=== PATIENT | female | born 1950 | race Hispanic/Latino ===

== ENCOUNTER → 2018-08-08 | Outpatient (CLI) | payer BC, MEDICARE | END | disposition home or self-care (01) | LOC: RAH 08:32 | PROVIDERS: ATTEND Family Medicine | DX: Z12.31 Encounter for screening mammogram for malignant neoplasm of breast (principal) | CPT/HCPCS: 77067 ==

== ENCOUNTER → 2021-06-30 | Outpatient (CLI) | payer OTHER | END | disposition home or self-care (01) | LOC: RAH 08:28 | PROVIDERS: ATTEND Family Medicine | DX: Z12.31 Encounter for screening mammogram for malignant neoplasm of breast (principal) | CPT/HCPCS: 77067 ==

== ENCOUNTER → 2022-07-04 | Outpatient (CLI) | payer OTHER | END | disposition home or self-care (01) | LOC: RAH 08:29 | PROVIDERS: ATTEND Family Medicine | DX: Z12.31 Encounter for screening mammogram for malignant neoplasm of breast (principal) | CPT/HCPCS: 77067 ==

== ENCOUNTER → 2023-07-05 | Outpatient (CLI) | payer OTHER | END | disposition home or self-care (01) | LOC: RAH 09:21 | PROVIDERS: ATTEND Family Medicine | DX: Z12.31 Encounter for screening mammogram for malignant neoplasm of breast (principal) | CPT/HCPCS: 77067 ==

== ENCOUNTER → 2024-07-09 | Outpatient (CLI) | payer OTHER ==
--- NOTE | 2024-07-11 12:16 | HMCIMG ---
MAMMO SCREENING BILATERAL HISTORY: Screening mammogram. COMPARISON: 07/05/2023 TECHNIQUE: Bilateral screening mammogram with CAD was performed with craniocaudal and mediolateral oblique projections. FINDINGS: The breasts are heterogeneous dense, which may obscure small masses. Vascular calcifications are seen. There is no evidence of a dominant mass, or suspicious microcalcification. There is no evidence of nipple retraction or skin thickening. IMPRESSION: 1. Stable mammogram. Patient was entered into a reminder system with a target due date for their next mammogram. BI-RADS: CATEGORY 2: BENIGN FINDINGS Recommend monthly self breast exam as well as annual clinical examination. A negative x-ray should not delay biopsy if a dominant or clinically suspicious mass is present, since 8-10% of cancers are not identified by mammography. Dense breasts particularly, may obscure an underlying neoplasm. Some of these may be detected clinically and therefore, clinical examination is an essential part of breast evaluation.
== END | disposition home or self-care (01) ==
LOC: RAH 08:16
PROVIDERS: ATTEND Family Medicine
DX: Z12.31 Encounter for screening mammogram for malignant neoplasm of breast (principal)
CPT/HCPCS: 77067

== ENCOUNTER → 2024-11-20 | Outpatient (CLI) | payer OTHER ==
[~2024-11-20] MED LIST: DIATR MEGLU/DIATRIZOATE SODIUM 30 ML BOTTLE ONE
--- NOTE | 2024-11-20 13:16 | HMCIMG ---
DOUBLE CONTRAST UPPER GI SMALL BOWEL FOLLOW-THROUGH INDICATION: Iron deficiency anemia, unspecified. CONTRACTOR BROOMCORN THRESHING: Dr. Coleman TECHNIQUE: Double contrast. FINDINGS: * Swallowing mechanism: Appears grossly normal. * Esophagus: Normal caliber and peristalsis throughout. No mucosal abnormality present There is no hiatal hernia. * Stomach: Normal size, shape and lies in normal position. Mucosal lining is preserved * Duodenum: Barium flows freely through the pylorus and into normal-appearing duodenal bulb and sweep. There is a duodenal diverticulum seen in the third portion of the duodenum. * Small bowel: Small bowel loops show normal caliber and mucosal pattern throughout. Terminal ileum is unremarkable. No abnormal identified in the cecum. Transit time was Time hours. * Gastroesophageal reflux: It was noted reaching the mid esophagus.. * There are multiple gallstones seen in the gallbladder FLUORO: Time min. IMPRESSION: Mild esophageal reflux with no hiatal hernia. Cholelithiasis
== END | disposition home or self-care (01) ==
LOC: RAH 08:44
PROVIDERS: ATTEND Internal Medicine Gastroenterology
DX: K21.9 Gastro-esophageal reflux disease without esophagitis (principal); K80.20 Calculus of gallbladder without cholecystitis without obstruction; D50.9 Iron deficiency anemia, unspecified
CPT/HCPCS: 74240; Q9963

== ENCOUNTER 2024-12-11 14:04 | Inpatient (IN) | payer OTHER ==
[~2024-12-11] VITALS: Ht 147.3 cm; Wt 41.3 kg
--- NOTE | 2024-12-11 14:20 | EKG ---
[facility] Test Date: 2024-12-11 Test Time: 14:15:55 Pat Name: FAIZAN DALAL Department: ED Room: 416 Gender: F Cane Burner: [id number] : 1950 Requested By: ANTONY FRIAS Order Number: [id number] Reading MD: Doyle Kruger Measurements Intervals [place] Rate: 106 P: 72 ME: 153 QRS: 100 QRSD: 79 T: 47 QT: 338 QTc: 448 Interpretive Statements Sinus tachycardia Probable anteroseptal infarct, old No previous ECG available for comparison Electronically Signed On 12-14-2024 19:47:09 CDT by Doyle Kruger Please click the below link to view image of tracing.
--- NOTE | 2024-12-11 14:29 | ERN ---
General Chief Complaint: Abdominal Pain Stated Complaint: ABD PAIN Time Seen by MD: 14:06 Source: patient, family History of Present Illness Initial Comments Patient is a 74-year-old female with a history of dementia coming in for failure to thrive. Per family member patient was evaluated by PCP and sent over due to increased weight loss in his short period time as well as decreased appetite and generalized body weakness. Allergies: Coded Allergies: No Known Drug Allergies (Unverified Allergy, Unknown, 12/11/24) Past Medical History Past Medical History: Anemia, Constipation, Dementia, Diabetes-Type II, GERD Medical History Other: HEMORRHOIDS Past Surgical History: Unknown ROS Dictation CONSTITUTIONAL: No chills, no fever, weakness, no diaphoresis, malaise. HEAD/FACE: No signs of trauma. EENT: No eye pain, no blurred vision, no tearing, no double vision, no ear pain, no ear discharge, no nose pain, no nasal congestion, no throat pain, no throat swelling, no mouth pain. RESPIRATORY: No cough, no orthopnea, no SOB, no stridor, no wheezing. CARDIOVASCULAR: No chest pain, no edema, no palpitations, no syncope. GASTROINTESTINAL/ABDOMINAL: No abdominal pain, no constipation, no diarrhea, no nausea, no vomiting. GENITOURINARY: No abnormal discharge, no dysuria, no frequent urination, no hematuria. No complaints of pain in the genitals. MUSCULOSKELETAL: No back pain, no gout, no joint pain, no joint swelling, no muscle pain, no muscle stiffness, no neck pain. INTEGUMENTARY: No change in color, no change in hair/nails, no dryness, no lesion, no lumps, no rash. NEUROLOGICAL/PSYCH: No anxiety, not depressed, no emotional problem, no headache, no numbness, no pre-existing deficit, no history of seizures, no tremors, no weakness. HEMATOLOGIC/LYMPHATIC: Not anemic, no history of blood clots, no apparent bleeding, no bruising, glands not swollen. All Systems Negative, Except as Noted. Physical Exam Physical Exam Dictation VITAL SIGNS: Reviewed. GENERAL APPEARANCE: Alert, oriented x3, no acute distress, obese. HEAD AND FACE: Non-traumatic. EYES: PERRL, pink conjunctivas, eyelid no trauma, anterior chamber clear. EARS: Pinnas intact and no signs of trauma or erythema. Ear canals clear and no discharge. TMs no erythema. NOSE: No discharge, no bleeding. OROPHARYNX: Mouth normal, teeth no caries, tongue pink. Pharynx clear, no erythema. Tonsils no exudates, no abscesses noted. Mucous membrane moist. NECK: Supple, non-tender, no thyromegaly, no masses, no JVD, no bruits. BREAST: Deferred. CHEST: No tenderness, no crepitus, no paradoxical movement, no retractions. LUNGS: Clear, well-ventilated, symmetric, no rales, no wheezing, no rhonchi, no stridor, good breath sounds bilaterally. HEART: Regular rate, regular rhythm, no murmur, no gallops. VASCULAR: No peripheral edema. ABDOMEN: Soft, positive bowel sounds, nondistended, no guarding, nontender, no rebound, no masses no hepatomegaly, no splenomegaly, no Rosas's sign, no hernias. RECTAL: Deferred. GENITAL: Deferred. NEUROLOGICAL: Normal speech, gross motor function intact, gross sensory function intact. MUSCULOSKELETAL: Neck nontender, full range of motion, back nontender, full range of motion. EXTREMITIES: Nontender, full range of motion. SKIN: Color pink, dry, no turgor, no rash, no lacerations, no abrasions, no contusions. LYMPHATICS: Deferred. Results Laboratory and Microbiology Lab and Micro Result Laboratory Tests Test 12/11/24 14:36 White Blood Count 6.6 K/uL (4.8-10.8) Red Blood Count 3.81 MIL/uL (4.00-5.50) L Hemoglobin 10.7 g/dL (12.0-16.0) L Hematocrit 31.2 % (36-48) L Mean Corpuscular Volume 81.9 fL (79-99) Mean Corpuscular Hemoglobin 28.1 pg (27.0-33.0) Mean Corpuscular Hemoglobin Concent 34.3 g/dL (32.0-36.0) Red Cell Distribution Width 17.6 % (11.0-15.5) H Platelet Count 278 K/uL (130-400) Mean Platelet Volume 10.0 fL (7.5-10.5) Immature Granulocyte % (Auto) 0.8 % (0-1) Neutrophils (%) (Auto) 81.0 % (40.0-77.0) H Lymphocytes (%) (Auto) 12.6 % (21.0-51.0) L Monocytes (%) (Auto) 5.3 % (3.0-13.0) Eosinophils (%) (Auto) 0.0 % (0.0-8.0) Basophils (%) (Auto) 0.3 % (0.0-5.0) Neutrophils # (Auto) 5.3 K/uL (1.8-7.7) Lymphocytes # (Auto) 0.8 K/uL (1.0-4.8) L Monocytes # (Auto) 0.4 K/uL (0.1-1.0) Eosinophils # (Auto) 0.00 K/uL (0.00-0.70) Basophils # (Auto) 0.02 K/uL (0.00-0.20) Absolute Immature Granulocyte (auto 0.05 K/uL (0-1) Nucleated Red Blood Cells 0.0 % (0.0-0.19) Sodium Level 132 mmol/L (136-145) L Potassium Level 4.5 mmol/L (3.5-5.1) Chloride Level 96 mmol/L (101-111) L Carbon Dioxide Level 28 mmol/L (21-32) Blood Urea Nitrogen 28 mg/dL (7-18) H Creatinine 0.8 mg/dL (0.5-1.0) Glomerular Filtration Rate Calc 77 mL/min (>90) Random Glucose 155 mg/dL (70-105) H Total Calcium 10.4 mg/dL (8.5-10.1) H Total Bilirubin 1.0 mg/dL (0.2-1.0) Aspartate Amino Transf (AST/SGOT) 37 U/L (10-37) Alanine Aminotransferase (ALT/SGPT) 27 U/L (12-78) Alkaline Phosphatase 69 U/L (50-136) Total Creatine Kinase 104 U/L (21-232) Troponin I High Sensitivity 95 ng/L (4-50) *H Total Protein 7.3 g/dL (6.0-8.3) Albumin 3.9 g/dL (3.5-5.0) Lipase 89 U/L (16-77) H Labs Reviewed?: Yes EKG/XRAY/US/CT/MRI EKG Comment 12/11/2024 time 2:15 p.m. Ventricular rate [address] wave elevation or depression MDM MDM: Differential diagnosis: Failure to thrive, generalized body weakness, nausea and vomiting,acs Rationale: Tests considered and ordered secondary to shared decision making include: Previous outside records reviewed: Old ER visits. Risk of complication and/or morbidity or mortality of patient management: None Medications-Per medication reconciliation Need for hospitalization: Patient does meet criteria for hospitalization. Need for emergency major/minor surgery: No There are no social concerns with this patient. Prescription drug management Prescriptions will include symptomatic care Patient's prior external medical records from other ER visits were reviewed by me as indicated. Prior testing and results from previous visits were reviewed. Prior tests were taken into account with medical decision making and resource utilization, independent historian/historians were used to obtain complete medical history. I independently interpreted the test that were performed, results were reviewed by me and considered findings on radiology if ordered. Medical management and examination interpretation discussions were had by me with other qualified healthcare professionals as indicated for the patient's care. Patient will be admitted under the care of [facility] for ongoing ma nagement of ACS with failure to thrive. ED Course Orders Procedure Category Date Status Time Cbc With Differential LAB 12/11/24 Complete 14:12 Comprehensive LAB 12/11/24 Complete Metabolic Panel 14:12 Troponin I High LAB 12/11/24 Complete Sensitivity 14:12 Urinalysis Profile LAB 12/11/24 Logged 14:12 12 Lead Ekg Tracing- EKG 12/11/24 Complete Technical 14:12 0.9%Nacl 1000ml (Ns PHA 12/11/24 Complete 1000ml) 14:30 Creatine Kinase, Total LAB 12/11/24 Complete 14:12 Chest 1vw RAD 12/11/24 Taken 14:12 Lipase LAB 12/11/24 Complete 14:12 Ct Abdomen/Pelvis W/O CT 12/11/24 Taken Contrast 15:01 Aspirin 325mg Ec Tab PHA 12/11/24 In Process (Aspirin 325mg Ec T 16:00 Troponin I High LAB 12/11/24 Logged Sensitivity 15:53 Vital Signs(Adult CPOE 12/11/24 Verified Hospitalist) 15:59 Nurse To Enter Home CPOE 12/11/24 Verified Medication 15:59 Admit Orders ADM 12/11/24 Verified 15:59 Current Medications Medications (Trade) Dose Ordered Sig/Claudia Route PRN Reason Start Time Stop Time Status Last Admin Dose Admin Aspirin (Aspirin 325mg Ec Tab) 325 mg ONCE ONCE PO 12/11/24 16:00 12/11/24 16:01 Sodium Chloride 1,000 ml @ 0 mls/hr ONCE ONCE IV 12/11/24 14:30 12/11/24 14:31 DC 12/11/24 15:49 Vital Signs Date Time Temp Pulse Resp B/P (MAP) Pulse Ox O2 Delivery O2 Flow Rate FiO2 12/11/24 15:33 97.5 98 18 107/72 100 Room Air* 0 21 12/11/24 14:06 97.5 98 18 107/72 100 Room Air 0 DX & DISP Disposition: Inpatient Decision to Admit Time: 16:06 Departure Impression: Primary Impression: ACS (acute coronary syndrome) Additional Impression: Failure to thrive Condition: Stable Referrals: KELLY ENRIQUEZ MD (PCP) ANTONY FRIAS MD Dec 11, 2024 14:29
[2024-12-11 14:46] LABS: IMMATURE GRANULOCYTE ABSOLUTE 0.05 K/uL (0-1); NUCLEATED RED BLOOD CELLS 0.0 % (0.0-0.19); PLATELET COUNT (AUTO) 278 K/uL (130-400); RED BLOOD CELL COUNT(AUTO) 3.81 MIL/uL (4.00-5.50); RED CELL DISTRIBUTION WIDTH 17.6 % (11.0-15.5); WHITE BLOOD COUNT (AUTO) 6.6 K/uL (4.8-10.8)
[2024-12-11 14:56] LABS: CREATININE 0.8 mg/dL (0.5-1.0); GLOMERULAR FILTR. RATE CALC 77.0 mL/min (>90); GLUCOSE,RANDOM 155.0 mg/dL (70-105); SODIUM SERUM 132.0 mmol/L (136-145); UREA NITROGEN, BLOOD 28.0 mg/dL (7-18)
[2024-12-11 15:01] LABS: ASPARTATE AMINOTRANSFERASE 37.0 U/L (10-37); CREATINE KINASE, TOTAL 104.0 U/L (21-232); TOTAL PROTEIN, SERUM 7.3 g/dL (6.0-8.3)
[2024-12-11] MEDS: 0.9%NACL 1000ML 1,000 ML IV ONE (15:49)
[2024-12-11] MEDS: ASPIRIN 325MG EC TAB PO ONE (16:05)
--- NOTE | 2024-12-11 16:30 | HMCIMG ---
EXAM: CR Chest, 1 View. CLINICAL HISTORY: cp COMPARISON: None provided. FINDINGS: LUNGS: The lungs show no infiltrate or other acute finding. PLEURAL SPACES: No pleural effusion or pneumothorax. MEDIASTINUM: Cardiac size and mediastinal contours within normal limits. BONES: No aggressive appearing osseous lesion seen. IMPRESSION: No acute cardiopulmonary pathology is evident. /[place]
--- NOTE | 2024-12-11 16:43 | NUR ---
Advised ED MD on elevated troponin (95).
--- NOTE | 2024-12-11 18:00 | NUR ---
Assumed patients care. Obtained urine sample. Connected patient to cardiac monitoring. Gave patient perianal care. at bedside. Patient not able to voice needs, alert, desoriented in time, place and situation. No visible signs of pain.
[2024-12-11 18:15] LABS: APPEARANCE,URINE CLEAR (CLEAR); GLUCOSE, URINE (UA) NEGATIVE (NEGATIVE); LEUKOCYTE ESTERASE ,URINE 75 Leu/uL (NEGATIVE); NITRATE,URINE NEGATIVE (NEGATIVE); OCCULT BLOOD,URINE NEGATIVE (NEGATIVE)
[2024-12-11 18:16] LABS: ADD UA MICROSCOPIC YES
[2024-12-11 18:21] LABS: OTHER CASTS, URINE 6 /LPF (None Seen)
--- NOTE | 2024-12-11 18:23 | NUR ---
Patients at bedside; does not remember the names or dosagess of medications. Stated he will send someone to get the list.
--- NOTE | 2024-12-11 18:23 | NUR ---
Discussed with patients admitting orders, medications and plan of care.
[2024-12-11] MEDS ORDERED: HYDROcodone/APAP 5/325 1 TAB TABLET PO PRN (19:00)
[2024-12-11] MEDS ORDERED: PoTASSium chloRIDE 20MEQ ER 20 MEQ ERTAB PO PRN (19:00)
[2024-12-11] MEDS ORDERED: PoTASSium chl 10% ELIXIR 20MEQ 20 MEQ/15 ML UDCUP PO PRN (19:00)
--- NOTE | 2024-12-11 19:00 | NUR ---
PATIENT CARE ASSUMED AT THIS TIME.
--- NOTE | 2024-12-11 19:08 | HP ---
[facility] HISTORY & PHYSICAL Date Patient Seen: Dec 11, 2024 Time of Visit: 19:07 Supervising Physician: Dr Chaitanya Omalley Primary Care Physician: Dr Vanessa Outpatient Specialists: [ ] Inpatient Consults: [ ] PROBLEM LIST: Acute toxic metabolic encephalopathy, POA Acute complicated cystitis, POA Hyponatremia, POA NSTEMI, initial troponin level of 95, no complaint of chest pain, and normal sinus rhythm on the monitor, POA DM type 2, with hyperglycemia, POA Failure to thrive, POA History of dementia History of GERD PLAN: Admit to medical-surgical floor with telemetry VS per unit protocol Neuro checks per unit protocol Start patient on ceftriaxone IV for cystitis Continue IV fluids Aspiration precautions Keep head of bed above 30 Treat fever aggressively Monitor temperature curve Safety precautions CBC, CMP, magnesium level daily HPI: 74-year-old female with past medical history of dementia, GERD, DM type two who presented to ED from doctor's clinic here for evaluation of progressive weight loss and possible failure to thrive. Per report patient initially was brought in by family members to PCP clinic for evaluation. Patient was found to have significant weight loss with poor appetite. Patient was then advised to come to ED for further medical evaluation. Her initial CBC showed normal WBC however there is elevated neutrophil count, there is also anemia, likely chronic. Her CMP is significant for sodium level of 132, with normal kidney function. Her initial troponin level was 95, with unremarkable EKG. However her UA showed leuko esterase. At present patient is currently hemodynamically stable, can not provide medical history, nor able to answer questions appropriately. PAST MEDICAL HX: see above PAST SURGICAL HX: noncontributory SOCIAL HISTORY: No tobacco, ETOH, or illicit drug use Coded Allergies: No Known Drug Allergies (Unverified Allergy, Unknown, 12/11/24) REVIEW OF SYSTEMS: Limited due to alteration in mental status PHYSICAL EXAM: GENERAL: alert, weak, confused HEENT: EOMI, Sclera non icteric, moist mucosa NECK: Supple, no JVD, trachea midline LUNGS: Clear breath sounds bilaterally. No wheezes HEART: Regular rate and rhythm. Normal S1 and S2, without murmurs ABD: Abdomen soft, nontender. Bowel sounds present EXT: No clubbing cyanosis or edema NEURO: Patient is confused and unable to follow simple commands Vital Signs (last 8hr) Date Time Temp Pulse Resp B/P (MAP) Pulse Ox O2 Delivery O2 Flow Rate FiO2 12/11/24 18:00 98.1 96 11 147/70 100 Room Air* 0 21 12/11/24 15:33 97.5 98 18 107/72 100 Room Air* 0 21 12/11/24 14:06 97.5 98 18 107/72 100 Room Air 0 LABS: Hematology Labs: Test 12/11/24 14:36 Range/Units White Blood Count 6.6 4.8-10.8 K/uL Red Blood Count 3.81 L 4.00-5.50 MIL/uL Hemoglobin 10.7 L 12.0-16.0 g/dL Hematocrit 31.2 L 36-48 % Mean Corpuscular Volume 81.9 79-99 fL Mean Corpuscular Hemoglobin 28.1 27.0-33.0 pg Mean Corpuscular Hemoglobin Concent 34.3 32.0-36.0 g/dL Red Cell Distribution Width 17.6 H 11.0-15.5 % Platelet Count 278 130-400 K/uL Mean Platelet Volume 10.0 7.5-10.5 fL Immature Granulocyte % (Auto) 0.8 0-1 % Neutrophils (%) (Auto) 81.0 H 40.0-77.0 % Lymphocytes (%) (Auto) 12.6 L 21.0-51.0 % Monocytes (%) (Auto) 5.3 3.0-13.0 % Eosinophils (%) (Auto) 0.0 0.0-8.0 % Basophils (%) (Auto) 0.3 0.0-5.0 % Neutrophils # (Auto) 5.3 1.8-7.7 K/uL Lymphocytes # (Auto) 0.8 L 1.0-4.8 K/uL Monocytes # (Auto) 0.4 0.1-1.0 K/uL Eosinophils # (Auto) 0.00 0.00-0.70 K/uL Basophils # (Auto) 0.02 0.00-0.20 K/uL Absolute Immature Granulocyte (auto 0.05 0-1 K/uL Nucleated Red Blood Cells 0.0 0.0-0.19 % Chemistry Labs: Test 12/11/24 16:11 12/11/24 14:36 Range/Units Troponin I High Sensitivity 95 *H 4-50 ng/L Sodium Level 132 L 136-145 mmol/L Potassium Level 4.5 3.5-5.1 mmol/L Chloride Level 96 L 101-111 mmol/L Carbon Dioxide Level 28 21-32 mmol/L Blood Urea Nitrogen 28 H 7-18 mg/dL Creatinine 0.8 0.5-1.0 mg/dL Glomerular Filtration Rate Calc 77 >90 mL/min Random Glucose 155 H 70-105 mg/dL Total Calcium 10.4 H 8.5-10.1 mg/dL Total Bilirubin 1.0 0.2-1.0 mg/dL Aspartate Amino Transf (AST/SGOT) 37 10-37 U/L Alanine Aminotransferase (ALT/SGPT) 27 12-78 U/L Alkaline Phosphatase 69 50-136 U/L Total Creatine Kinase 104 21-232 U/L Total Protein 7.3 6.0-8.3 g/dL Albumin 3.9 3.5-5.0 g/dL Lipase 89 H 16-77 U/L DIAGNOSTICS / RADIOLOGY RESULTS: EXAM: CR Chest, 1 View. CLINICAL HISTORY: cp COMPARISON: None provided. FINDINGS: LUNGS: The lungs show no infiltrate or other acute finding. PLEURAL SPACES: No pleural effusion or pneumothorax. MEDIASTINUM: Cardiac size and mediastinal contours within normal limits. BONES: No aggressive appearing osseous lesion seen. IMPRESSION: No acute cardiopulmonary pathology is evident. /[place] PLAN NEURO: Minimize central acting medications as possible. Maintain fall precautions, adequate lighting during the day PULMONARY: Supplemental 02 as needed. Maintain aspiration precautions at all times CARDIOVASCULAR: Follow hemodynamics. Vital signs per facility protocol GI & NUTRITION: Continue with nutritional support. Continue stool softeners and laxatives as needed. KIDNEYS & ELECTROLYTES: Strict monitoring of intake, output and overall fluid balance. Avoid nephrotoxic medications to the extent possible. Medications to be dosed according to renal function. Monitor electrolytes and replace as needed ENDOCRINE: Maintain blood glucose between 100-180 at all times. Hypoglycemia protocol in place INFECTIOUS DISEASE: Trend temperature, WBC and procalcitonin level Follow cultures, deescalate antibiotics as soon as possible. Panculture if new onset fever ONCOLOGY/HEMATOLOGY/COAGULATION: Monitor for s/s of bleeding Monitor hemoglobin, coagulation studies as needed SKIN: Pressure ulcer prevention per facility protocol Specialty mattress ORTHO/REHAB: Continue PT/OT Prophylaxis: Continue GI and DVT prophylaxis Code Status: Full Resuscitation Disposition: TBD Supervising physician: KHURRAM Prajapati HARVEST MANAGER Dec 11, 2024 19:08
[2024-12-11] MEDS: 0.9%NACL 1000ML 1,000 ML IV SCH (20:38)
--- NOTE | 2024-12-11 20:59 | NUR ---
REPORT GIVEN TO IRVING OZUNA.
--- NOTE | 2024-12-11 21:00 | NUR ---
CONTACT INFO: KEN DALAL, [phone]
--- NOTE | 2024-12-11 21:03 | NUR ---
PATIENT TRANSPORTED TO [facility]
[2024-12-11 21:10] VITALS: BP 139/81; PULSE 96; RESP 16; TEMP 98.1
[2024-12-11 23:20] VITALS: BP 144/86; PULSE 102; RESP 17
[2024-12-12] VITALS (7 sets, daily range): BP systolic 124–158; BP diastolic 73–88; PULSE 92–98; RESP 16–18; TEMP 98–98.3; O2SAT 100
[2024-12-12 05:18] LABS: IMMATURE GRANULOCYTE ABSOLUTE 0.02 K/uL (0-1); NUCLEATED RED BLOOD CELLS 0.0 % (0.0-0.19); PLATELET COUNT (AUTO) 264 K/uL (130-400); RED BLOOD CELL COUNT(AUTO) 3.40 MIL/uL (4.00-5.50); RED CELL DISTRIBUTION WIDTH 16.8 % (11.0-15.5); WHITE BLOOD COUNT (AUTO) 6.4 K/uL (4.8-10.8)
[2024-12-12 05:33] LABS: CREATININE 0.5 mg/dL (0.5-1.0); GLOMERULAR FILTR. RATE CALC 98 mL/min (>90); GLUCOSE,RANDOM 112 mg/dL (70-105); SODIUM SERUM 135 mmol/L (136-145); UREA NITROGEN, BLOOD 19 mg/dL (7-18)
[2024-12-12 05:48] LABS: PHOSPHORUS < 0.5 mg/dL (2.5-4.9)
[2024-12-12] MEDS: MAGNESIUM 2GM PREMIX 50ML 50 ML IV PRN (05:54)
--- NOTE | 2024-12-12 10:09 | HMCIMG ---
EXAM: CT Abdomen and Pelvis without IV contrast CLINICAL HISTORY: abd pain TECHNIQUE: Axial computed tomography images of the abdomen and pelvis without intravenous contrast. CT scan performed according to ALARA. Automated exposure control used during exam. CONTRAST: without intravenous contrast. COMPARISON: None provided. FINDINGS: Mild linear atelectasis and/or parenchymal scarring at the lung bases. Limited evaluation of the abdominal organs without intravenous contrast. There is no focal abnormality appreciated within the liver, either adrenal gland, either kidney, spleen, or pancreas. Cholelithiasis without CT evidence for cholecystitis. There is abundant colonic fecal matter that may reflect constipation. Bowel loops are normal in caliber without evidence of obstruction or ileus. The appendix was not adequately visualized for characterization. No CT evidence for acute appendicitis. The bladder is underdistended, limiting evaluation. No gross pelvic abnormalities appreciated. Calcified uterine vessels. There is no ascites or lymphadenopathy. Abdominal aorta and branch vessels demonstrate atherosclerotic vascular calcifications. There is no acute or suspicious osseous abnormality. Old T12 fracture deformity. IMPRESSION: No acute intra-abdominal or pelvic abnormality. Abundant colonic fecal matter may reflect constipation. Bowel loops remain normal in caliber. Cholelithiasis without CT evidence for cholecystitis. /[place]
--- NOTE | 2024-12-12 13:24 | NUR ---
TOBI spoke with son Turin Kaz [phone] in reference to potential provider services. TOBI educated family that services are usually covered through medicaid and asked if they had previously applied for assistance. Son states that he is unaware if they have. Informed them that there cat also private pay rates and services. Encouraged them to contact the area [place] to see if they can get services there. Another family member in room stated that perhaps they can take turns helping care for pt while they find some type of assistance. No other concerns at this time.
--- NOTE | 2024-12-12 13:59 | PN ---
[facility] PROGRESS NOTE Date Patient Seen: Dec 12, 2024 Time of Visit: 13:59 Supervising Physician: Dr Chaitanya Omalley Primary Care Physician: Dr Vanessa Outpatient Specialists: [ ] Inpatient Consults: [ ] PROBLEM LIST: Acute toxic metabolic encephalopathy, POA Acute complicated cystitis, POA Hyponatremia, POA Electrolyte derangements syndrome: Severe Hypophosphatemia, severe Hypomagnesemia & hypocalcemia NSTEMI, initial troponin level of 95, no complaint of chest pain, and normal sinus rhythm on the monitor, POA DM type 2, with hyperglycemia, POA Failure to thrive, POA Advanced dementia Aphasic Oropharyngeal dysphagia CHRONIC PROBLEM LIST: Diabetes mellitus type 2 Debility Adult failure to thrive PLAN: Admit to medical-surgical floor with telemetry VS per unit protocol Neuro checks per unit protocol Start patient on ceftriaxone IV for cystitis Continue IV fluids Aspiration precautions PPN MBSS ordered to confirm patient's condition Phosphorus, calcium, and magnesium replacement protocol Reviewing diagnostic results with family at bedside, when available Palliative care consult GI we will be consulted after above consult A.m. labs Keep head of bed above 30 Treat fever aggressively Monitor temperature curve Safety precautions CBC, CMP, magnesium level daily INTERVAL HISTORY: 74-year-old female with past medical history of dementia, GERD, DM type two who presented to ED from [facility] here for evaluation of progressive weight loss and possible failure to thrive. Per report patient initially was brought in by family members to PCP clinic for evaluation. Patient was found to have significant weight loss with poor appetite. Patient was then advised to come to ED for further medical evaluation. Her initial CBC showed normal WBC however there is elevated neutrophil count, there is also anemia, likely chronic. Her CMP is significant for sodium level of 132, with normal kidney function. Her initial troponin level was 95, with unremarkable EKG. However her UA showed leuko esterase. At present patient is currently hemodynamically stable, can not provide medical history, nor able to answer questions appropriately. 12/12-patient is was assessed and seen while resting in bed in a high Rodrigues's position with family members present. Patient's condition is guarded long-term prognosis is poor. Patient is aphasic, with some form of dysphagia, at [facility] facility prior to transfer for [facility] patient was receiving PPN. Patient is transferred via EMS to the hospital for altered mental status, acute metabolic encephalopathy. Upon assessment patient has severe hypophosphatemia and hypomagnesemia with hypocalcemia. Addressed through electrolyte protocol. We will review when rounding early tomorrow morning diagnostic tests results with family. Patient will have MBS assess to confirm patient's condition. We will discuss open nicely with family members especially daughter or son who has medical power of theatre instructor what the family's choices. After that depending on a conversation palliative care then to speak with family about patient's diagnosis prognosis enough. Family then would like to consult GI for possible G-tube placement because the patient has some form of oropharyngeal dysphagia secondary advancing dementia. REVIEW OF SYSTEMS: Limited due to alteration in mental status PHYSICAL EXAM: GENERAL: alert, weak, confused HEENT: EOMI, Sclera non icteric, moist mucosa NECK: Supple, no JVD, trachea midline LUNGS: Clear breath sounds bilaterally. No wheezes HEART: Regular rate and rhythm. Normal S1 and S2, without murmurs ABD: Abdomen soft, nontender. Bowel sounds present EXT: No clubbing cyanosis or edema NEURO: Patient is confused and unable to follow simple commands Vital Signs (last 8hr) Date Time Temp Pulse Resp B/P (MAP) Pulse Ox O2 Delivery O2 Flow Rate FiO2 12/12/24 12:00 98.2 94 18 140/88 98 Room Air 12/12/24 08:00 98.1 94 18 124/73 100 Room Air LABS: Hematology Labs: Test 12/12/24 04:46 Range/Units White Blood Count 6.4 4.8-10.8 K/uL Red Blood Count 3.40 L 4.00-5.50 MIL/uL Hemoglobin 9.4 L 12.0-16.0 g/dL Hematocrit 27.2 L 36-48 % Mean Corpuscular Volume 80.0 79-99 fL Mean Corpuscular Hemoglobin 27.6 27.0-33.0 pg Mean Corpuscular Hemoglobin Concent 34.6 32.0-36.0 g/dL Red Cell Distribution Width 16.8 H 11.0-15.5 % Platelet Count 264 130-400 K/uL Mean Platelet Volume 10.6 H 7.5-10.5 fL Immature Granulocyte % (Auto) 0.3 0-1 % Neutrophils (%) (Auto) 67.2 40.0-77.0 % Lymphocytes (%) (Auto) 24.6 21.0-51.0 % Monocytes (%) (Auto) 7.4 3.0-13.0 % Eosinophils (%) (Auto) 0.2 0.0-8.0 % Basophils (%) (Auto) 0.3 0.0-5.0 % Neutrophils # (Auto) 4.3 1.8-7.7 K/uL Lymphocytes # (Auto) 1.6 1.0-4.8 K/uL Monocytes # (Auto) 0.5 0.1-1.0 K/uL Eosinophils # (Auto) 0.01 0.00-0.70 K/uL Basophils # (Auto) 0.02 0.00-0.20 K/uL Absolute Immature Granulocyte (auto 0.02 0-1 K/uL Nucleated Red Blood Cells 0.0 0.0-0.19 % Chemistry Labs: Test 12/12/24 11:57 12/12/24 04:46 12/11/24 16:11 12/11/24 14:36 Range/Units Whole Blood Glucose 126 H 70-110 MG/DL Sodium Level 135 L 136-145 mmol/L Potassium Level 3.7 3.5-5.1 mmol/L Chloride Level 100 L 101-111 mmol/L Carbon Dioxide Level 27 21-32 mmol/L Blood Urea Nitrogen 19 H 7-18 mg/dL Creatinine 0.5 0.5-1.0 mg/dL Glomerular Filtration Rate Calc 98 >90 mL/min Random Glucose 112 H 70-105 mg/dL Total Calcium 8.7 8.5-10.1 mg/dL Phosphorus Level < 0.5 *L 2.5-4.9 mg/dL Magnesium Level 0.70 *L 1.80-2.40 mg/dL Procalcitonin < 0.05 L 0.05-0.5 ng/mL Troponin I High Sensitivity 95 *H 4-50 ng/L Total Bilirubin 1.0 0.2-1.0 mg/dL Aspartate Amino Transf (AST/SGOT) 37 10-37 U/L Alanine Aminotransferase (ALT/SGPT) 27 12-78 U/L Alkaline Phosphatase 69 50-136 U/L Total Creatine Kinase 104 21-232 U/L Total Protein 7.3 6.0-8.3 g/dL Albumin 3.9 3.5-5.0 g/dL Lipase 89 H 16-77 U/L DIAGNOSTICS / RADIOLOGY RESULTS: [ ] PLAN NEURO: Minimize central acting medications as possible. Maintain fall precautions, adequate lighting during the day PULMONARY: Supplemental 02 as needed. Maintain aspiration precautions at all times CARDIOVASCULAR: Follow hemodynamics. Vital signs per facility protocol GI & NUTRITION: Continue with nutritional support. Continue stool softeners and laxatives as needed. KIDNEYS & ELECTROLYTES: Strict monitoring of intake, output and overall fluid balance. Avoid nephrotoxic medications to the extent possible. Medications to be dosed according to renal function. Monitor electrolytes and replace as needed ENDOCRINE: Maintain blood glucose between 100-180 at all times. Hypoglycemia protocol in place INFECTIOUS DISEASE: Trend temperature, WBC and procalcitonin level Follow cultures, deescalate antibiotics as soon as possible. Panculture if new onset fever ONCOLOGY/HEMATOLOGY/COAGULATION: Monitor for s/s of bleeding Monitor hemoglobin, coagulation studies as needed SKIN: Pressure ulcer prevention per facility protocol Specialty mattress ORTHO/REHAB: Continue PT/OT Prophylaxis: Continue GI and DVT prophylaxis Code Status: Full Resuscitation Disposition: TBD Patient was seen assessed in the case was discussed with my supervising physicia n. 45 minutes critical care time spent excluding any procedures performed, based upon patient's criteria upon presentation involving bodily systems: Patient had severe electrolyte imbalances with magnesium and phosphorus, these have a direct influenza upon the cardiovascular system. Case was discussed reviewed plan was formulated with input from supervising physician, SUNI Delgado NP Dec 12, 2024 13:59
--- NOTE | 2024-12-12 14:45 | NUR ---
BEDSIDE SWALLOW EVAL COMPLETED. +s/s of aspiration. Recommend NPO, until MBSS. INSTRUCTIONAL SUPPORT SPECIALIST reviewed results and recommendations with patient, family and nurse Rosibel. INSTRUCTIONAL SUPPORT SPECIALIST educated patient on risks and consequences of aspiration. Speech therapy will follow up with MBSS. All questions answered. Addendum: 12/12/[address]ONARDA BEDOYA Amended: Links added.
--- NOTE | 2024-12-12 15:19 | NUR ---
Nutritional Note: Chart, meds, and labs Reviewed. Pt family in room states that pt has lost a lot of weight in last month amount unknown, Pt not in room. Pt was un able to answer questions and was not sure. Pt family stated pt ate around a spoonful of food today but was currently NPO. Recommend -f/u with FIRE CREW SPECIALIST recommendations. -Consider alternate nutrition support if oral intake inadequate and prolonged. - Electrolyte replacements per protocol -If PO add nutritional supplement Glucerna w/ trays. -Monitor feeding tolerance, %, wt, and labs -Document PO intake and wt daily. -If No BM >3days consider bowel stimulant. -Consider appetite stimulant if intake remains <75%for 3 days. - Notify RD if additional nutrition concerns arise. SEE RD Nutritional Assessment for additional assessment information. Addendum: 12/12/24 at [address] Amended: Links added.
--- NOTE | 2024-12-12 16:20 | NUR ---
MBSS COMPLETED. Deep non-transient penetration during the swallow with pudding textures, mildly thick liquids via tsp, and thin liquids via tsp (3cc) with inconsistent throat clearings. RECOMMEND: pureed solids, moderately thick liquids (VIA TSP), and pills crushed with applesauce (NO PUDDING). DIAGNOSTIC FINDINGS: Pt presented with moderate oral and moderate to severe pharyngeal dysphagia characterized by decreased oral motor strength, ROM, and coordination; delayed pharyngeal response trigger and decreased hyo-laryngeal elevation/excursion; evidenced by decreased labial closure with anterior spillage; tongue thrust; decreased bolus formation and manipulation; tongue pumping; premature spillage to valleculae with spillover to pyriform sinuses; residue on body and base of tongue, valleculae, pyriform sinuses and posterior pharyngeal wall partially cleared with extra dry swallows; deep non-transient penetrations during the swallow with pudding thick textures (things that melt); mildly thick liquids and thin liquids via tsp (3cc) with inconsistent throat clears. Mastication function not addressed due to tongue thrusting, decreased bolus formation/manipulation and decreased mentation. NOTE: Patient observed with lip smacking and licking hand throughout exam. COMPENSATORY STRATEGIES: 1. sit upright during oral intake 2. small bites 3. liquids ONLY via tsp 4. NOTHING THAT MELTS: pudding, ice cream, jello, etc. APPLICATIONS ENGINEER reviewed results and recommendations with patient and nurse Rosibel. APPLICATIONS ENGINEER educated patient on risks and consequences of aspiration. Speech therapy not warranted at this time. Dysphagia likely due to dementia and best managed with modification and compensatory strategies. All questions answered. Addendum: 12/12/[address]ONARDA BEDOYA Amended: Links added.
--- NOTE | 2024-12-12 18:50 | NUR ---
SPEECH THERAPY PEOPLESOFT FUNCTIONAL ANALYST arrived to patient's room to review MBSS results with patient and family present at time of visit (). PEOPLESOFT FUNCTIONAL ANALYST posted aspiration precaution sign with diet recommendations and compensatory strategies listed. Strategies reviewed with patient/family. Speech therapy not warranted. All questions answered at this time. Addendum: 12/12/[address]ONARDA BEDOYA Amended: Links added.
[2024-12-12 18:51] LABS: PHOSPHORUS < 0.5 mg/dL (2.5-4.9)
[2024-12-13] VITALS (7 sets, daily range): BP systolic 127–158; BP diastolic 85–95; PULSE 99–112; RESP 16–20; TEMP 97.6–98.3; O2SAT 99
[2024-12-13 06:24] LABS: PHOSPHORUS < 0.5 mg/dL (2.5-4.9)
[2024-12-13] MEDS ORDERED: [UNRECOGNIZED DRUG - OTHER] IV PRN (07:00)
[2024-12-13] MEDS ORDERED: NS IV PRN (07:00)
[2024-12-13] MEDS ORDERED: COMPOUND IV MISC 1 EACH IVSOLN MISC PRN (07:30)
[2024-12-13 07:56] LABS: ASPARTATE AMINOTRANSFERASE 32.0 U/L (10-37); CREATININE 0.5 mg/dL (0.5-1.0); GLOMERULAR FILTR. RATE CALC 98.0 mL/min (>90); GLUCOSE,RANDOM 171.0 mg/dL (70-105); SODIUM SERUM 136.0 mmol/L (136-145); TOTAL PROTEIN, SERUM 6.3 g/dL (6.0-8.3); UREA NITROGEN, BLOOD 12.0 mg/dL (7-18)
--- NOTE | 2024-12-13 11:12 | HMCIMG ---
MODIFIED BARIUM SWALLOW W CINE REASON: DIFFICULTY SWALLOWING FINDINGS: Fluoroscopic assistance was provided to the speech pathologist while performing examination. For findings and dietary recommendations, refer to speech pathologist's report. FLUORO TIME: 4.6 minutes IMPRESSION: Modified barium swallow as described.
--- NOTE | 2024-12-13 14:45 | NUR ---
SW spoke with family and they were agreeable to hospice services with [facility]. Family did voice that they wanted to work on placement at a hospice home. Clinicals were faxed to [facility] at [phone]
[2024-12-13] MEDS: SCOPOLAMINE HYDROBROMIDE 1 EACH ADH..PATCH TD SCH (16:13)
[2024-12-13 18:19] LABS: CREATININE 0.4 mg/dL (0.5-1.0); GLOMERULAR FILTR. RATE CALC 104.0 mL/min (>90); GLUCOSE,RANDOM 150.0 mg/dL (70-105); PHOSPHORUS 1.2 mg/dL (2.5-4.9); SODIUM SERUM 135.0 mmol/L (136-145); UREA NITROGEN, BLOOD 8.0 mg/dL (7-18)
--- NOTE | 2024-12-13 21:16 | PN ---
[facility] PROGRESS NOTE BACK DATED ENTRY 12/13/24 13:35 Date Patient Seen: Dec 13, 2024 Time of Visit: 13:35 Supervising Physician: Dr. Chaitanya Omalley Primary Care Physician: Dr Vanessa Outpatient Specialists: [ ] Inpatient Consults: [ ] PROBLEM LIST: Acute toxic metabolic encephalopathy, POA Acute complicated cystitis, POA Hyponatremia, POA Electrolyte derangements syndrome: Severe Hypophosphatemia, severe Hypomagnesemia & hypocalcemia NSTEMI, initial troponin level of 95, no complaint of chest pain, and normal sinus rhythm on the monitor, POA DM type 2, with hyperglycemia, POA Failure to thrive, POA Advanced dementia Aphasic Oropharyngeal dysphagia CHRONIC PROBLEM LIST: Advancing form of dementia Diabetes mellitus type 2 Debility Adult failure to thrive PLAN: Patient's family has chosen hospice comfort care Comfort care measures ordered Case management arranging placement Patient's family has chosen facility hospice rather than at home Oral care and repositioning the patient q.2 hours INTERVAL HISTORY: 74-year-old female with past medical history of dementia, GERD, DM type two who presented [facility] ED from [facility] here for evaluation of progressive weight loss and possible failure to thrive. Per report patient initially was brought in by family members to PCP clinic for evaluation. Patient was found to have significant weight loss with poor appetite. Patient was then advised to come to ED for further medical evaluation. Her initial CBC showed normal WBC however there is elevated neutrophil count, there is also anemia, likely chronic. Her CMP is significant for sodium level of 132, with normal kidney function. Her initial troponin level was 95, with unremarkable EKG. However her UA showed leuko esterase. At present patient is currently hemodynamically stable, can not provide medical history, nor able to answer questions appropriately. 12/12-patient is was assessed and seen while resting in bed in a high Rodrigues's position with family members present. Patient's condition is guarded long-term prognosis is poor. Patient is aphasic, with some form of dysphagia, [facility] patient was receiving PPN. Patient is transferred via EMS to the hospital for altered mental status, acute metabolic encephalopathy. Upon assessment patient has severe hypophosphatemia and hypomagnesemia with hypocalcemia. Addressed through electrolyte protocol. We will review when rounding early tomorrow morning diagnostic tests results with family. Patient will have MBS assess to confirm patient's condition. We will discuss open nicely with family members especially daughter or son who has medical power of transactional attorney what the family's choices. After that depending on a conversation palliative care then to speak with family about patient's diagnosis prognosis enough. Family then would like to consult GI for possible G-tube placement because the patient has some form of oropharyngeal dysphagia secondary advancing dementia. 12/13-Assessed and seen the patient with family members present, patient's son and were in the room with other family members during this time. Patient is aphasic, oropharyngeal dysphagia, secondary to advancing form of dementia, patient is nonverbal time patient's prognosis is patient has has been declining gradually during this hospital admission has been more dramatic. Patient's family reports that this time was time after discussing options the family has chosen hospice with comfort care. Laboratory studies or IV antibiotics we will be treated patient will have comfort measures including scopolamine patch, scheduled for pain relief and other p.r.n. medications as needed. Hospice referral has been made, case management arranging placement. Patient's code status is changed to DNR/.DNI. REVIEW OF SYSTEMS: Limited due to alteration in mental status PHYSICAL EXAM: GENERAL: alert, weak, confused HEENT: EOMI, Sclera non icteric, moist mucosa NECK: Supple, no JVD, trachea midline LUNGS: Clear breath sounds bilaterally. No wheezes HEART: Regular rate and rhythm. Normal S1 and S2, without murmurs ABD: Abdomen soft, nontender. Bowel sounds present EXT: No clubbing cyanosis or edema NEURO: Patient is confused and unable to follow simple commands Vital Signs (last 8hr) Date Time Temp Pulse Resp B/P (MAP) Pulse Ox O2 Delivery O2 Flow Rate FiO2 12/13/24 20:00 97.5 101 20 153/95 97 Nasal Cannula 12/13/24 15:30 97.9 103 16 134/85 96 Room Air LABS: Hematology Labs: Test 12/12/24 04:46 Range/Units White Blood Count 6.4 4.8-10.8 K/uL Red Blood Count 3.40 L 4.00-5.50 MIL/uL Hemoglobin 9.4 L 12.0-16.0 g/dL Hematocrit 27.2 L 36-48 % Mean Corpuscular Volume 80.0 79-99 fL Mean Corpuscular Hemoglobin 27.6 27.0-33.0 pg Mean Corpuscular Hemoglobin Concent 34.6 32.0-36.0 g/dL Red Cell Distribution Width 16.8 H 11.0-15.5 % Platelet Count 264 130-400 K/uL Mean Platelet Volume 10.6 H 7.5-10.5 fL Immature Granulocyte % (Auto) 0.3 0-1 % Neutrophils (%) (Auto) 67.2 40.0-77.0 % Lymphocytes (%) (Auto) 24.6 21.0-51.0 % Monocytes (%) (Auto) 7.4 3.0-13.0 % Eosinophils (%) (Auto) 0.2 0.0-8.0 % Basophils (%) (Auto) 0.3 0.0-5.0 % Neutrophils # (Auto) 4.3 1.8-7.7 K/uL Lymphocytes # (Auto) 1.6 1.0-4.8 K/uL Monocytes # (Auto) 0.5 0.1-1.0 K/uL Eosinophils # (Auto) 0.01 0.00-0.70 K/uL Basophils # (Auto) 0.02 0.00-0.20 K/uL Absolute Immature Granulocyte (auto 0.02 0-1 K/uL Nucleated Red Blood Cells 0.0 0.0-0.19 % Chemistry Labs: Test 12/13/24 19:54 12/13/24 18:01 12/13/24 07:31 12/13/24 05:30 Range/Units Whole Blood Glucose 164 H 70-110 MG/DL Sodium Level 135 L 136-145 mmol/L Potassium Level 2.9 *L 3.5-5.1 mmol/L Chloride Level 100 L 101-111 mmol/L Carbon Dioxide Level 28 21-32 mmol/L Blood Urea Nitrogen 8 7-18 mg/dL Creatinine 0.4 L 0.5-1.0 mg/dL Glomerular Filtration Rate Calc 104 >90 mL/min Random Glucose 150 H 70-105 mg/dL Total Calcium 8.4 L 8.5-10.1 mg/dL Phosphorus Level 1.2 L 2.5-4.9 mg/dL Magnesium Level 1.50 L 1.80-2.40 mg/dL Total Bilirubin 0.8 0.2-1.0 mg/dL Aspartate Amino Transf (AST/SGOT) 32 10-37 U/L Alanine Aminotransferase (ALT/SGPT) 22 12-78 U/L Alkaline Phosphatase 66 50-136 U/L Ammonia 15 11-32 umol/L Total Protein 6.3 6.0-8.3 g/dL Albumin 3.4 L 3.5-5.0 g/dL B-Type Natriuretic Peptide 70 0-100 pg/mL Test 12/12/24 04:46 Range/Units Procalcitonin < 0.05 L 0.05-0.5 ng/mL DIAGNOSTICS / RADIOLOGY RESULTS: [ ] PLAN NEURO: Minimize central acting medications as possible. Maintain fall precautions, adequate lighting during the day PULMONARY: Supplemental 02 as needed. Maintain aspiration precautions at all times CARDIOVASCULAR: Follow hemodynamics. Vital signs per facility protocol GI & NUTRITION: Continue with nutritional support. Continue stool softeners and laxatives as needed. KIDNEYS & ELECTROLYTES: Strict monitoring of intake, output and overall fluid balance. Avoid nephrotoxic medications to the extent possible. Medications to be dosed according to renal function. Monitor electrolytes and replace as needed ENDOCRINE: Maintain blood glucose between 100-180 at all times. Hypoglycemia protocol in place INFECTIOUS DISEASE: Trend temperature, WBC and procalcitonin level Follow cultures, deescalate antibiotics as soon as possible. Panculture if new onset fever ONCOLOGY/HEMATOLOGY/COAGULATION: Monitor for s/s of bleeding Monitor hemoglobin, coagulation studies as needed SKIN: Pressure ulcer prevention per facility protocol Specialty mattress ORTHO/REHAB: Continue PT/OT Prophylaxis: Continue GI and DVT prophylaxis Code Status: Full Resuscitation Disposition: TBD Patient was seen assessed in the case was discussed with my supervising physician. 45 minutes critical care time spent excluding any procedures performed, based upon patient's criteria upon presentation involving bodily systems: Patient had severe electrolyte imbalances with magnesium and phosphorus, these have a direct influenza upon the cardiovascular system. Case was discussed reviewed plan was formulated with input from supervising physician, USNI Delgado NP Dec 13, 2024 21:16
[2024-12-14] VITALS: BP 166/97; PULSE 90; RESP 20; TEMP 97
[2024-12-14] MEDS ORDERED: HYDROcodone/APAP 5/325 1 TAB TABLET PO PRN (02:00)
--- NOTE | 2024-12-14 03:00 | NUR ---
LABS PER PATIENTS AND SON DONT WANT NO MORE IV STICKS OR LAB DRAWN ON PATIENT
[2024-12-14 04:00] VITALS: BP 163/102; PULSE 87; RESP 20; TEMP 97.6
[2024-12-14 08:00] VITALS: BP 179/95; PULSE 79; RESP 18; TEMP 97.4; O2SAT 98
--- NOTE | 2024-12-14 11:19 | PN ---
[facility] PROGRESS NOTE Date Patient Seen: Dec 14, 2024 Time of Visit: 11:18 Supervising Physician: Dr. Enrico Franz Primary Care Physician: Dr Vanessa Outpatient Specialists: [ ] Inpatient Consults: Hospice PROBLEM LIST: Acute toxic metabolic encephalopathy, POA Acute complicated cystitis, POA Hyponatremia, POA Electrolyte derangements syndrome: Severe Hypophosphatemia, severe Hypomagnesemia & hypocalcemia NSTEMI, initial troponin level of 95, no complaint of chest pain, and normal sinus rhythm on the monitor, POA DM type 2, with hyperglycemia, POA Failure to thrive, POA Advanced dementia Aphasic Oropharyngeal dysphagia Comatose CHRONIC PROBLEM LIST: Advancing form of dementia Diabetes mellitus type 2 Debility Adult failure to thrive PLAN: Patient's family has chosen hospice comfort care Comfort care measures ordered Case management arranging placement Patient's family has chosen facility hospice rather than at home Oral care and repositioning the patient q.2 hours Case management to facilitate transferred to another facility when bed available INTERVAL HISTORY: 74-year-old female with past medical history of dementia, GERD, DM type two who presented to ED from doctor's clinic here for evaluation of progressive weight loss and possible failure to thrive. Per report patient initially was brought in by family members to PCP clinic for evaluation. Patient was found to have significant weight loss with poor appetite. Patient was then advised to come to ED for further medical evaluation. Her initial CBC showed normal WBC however there is elevated neutrophil count, there is also anemia, likely chronic. Her CMP is significant for sodium level of 132, with normal kidney function. Her initial troponin level was 95, with unremarkable EKG. However her UA showed leuko esterase. At present patient is currently hemodynamically stable, can not provide medical history, nor able to answer questions appropriately. 12/12-patient is was assessed and seen while resting in bed in a high Rodrigues's position with family members present. Patient's condition is guarded long-term prognosis is poor. Patient is aphasic, with some form of dysphagia, [facility] patient was receiving PPN. Patient is transferred via EMS to the hospital for altered mental status, acute metabolic encephalopathy. Upon assessment patient has severe hypophosphatemia and hypomagnesemia with hypocalcemia. Addressed through electrolyte protocol. We will review when rounding early tomorrow morning diagnostic tests results with family. Patient will have MBS assess to confirm patient's condition. We will discuss open nicely with family members especially daughter or son who has medical power of attorney lawyer what the family's choices. After that depending on a conversation palliative care then to speak with family about patient's diagnosis prognosis enough. Family then would like to consult GI for possible G-tube placement because the patient has some form of oropharyngeal dysphagia secondary advancing dementia. 12/13-Assessed and seen the patient with family members present, patient's son and were in the room with other family members during this time. Patient is aphasic, oropharyngeal dysphagia, secondary to advancing form of dementia, patient is nonverbal time patient's prognosis is patient has has been declining gradually during this hospital admission has been more dramatic. Patient's family reports that this time was time after discussing options the family has chosen hospice with comfort care. Laboratory studies or IV ant ibiotics we will be treated patient will have comfort measures including scopolamine patch, scheduled for pain relief and other p.r.n. medications as needed. Hospice referral has been made, case management arranging placement. Patient's code status is changed to DNR/.DNI. 12/14-The patient assessed, seen , while resting in bed high Rodrigues's position chronically ill-appearing, cachectic, aphasic, dysphagia, and requiring assistance and care q.2 hours oral care and rotation. Patient's family has chosen hospice hospice started at the hospital case management to assist with transferring the patient to a facility when bed available. Patient is being monitored oral care, pain medicine scheduled IV Tylenol scheduled, atropine, scopolamine patch, with 4-0 care being provided scheduled and p.r.n.. Family was updated and listened. REVIEW OF SYSTEMS: Limited due to alteration in mental status PHYSICAL EXAM: GENERAL: alert, weak, confused HEENT: EOMI, Sclera non icteric, moist mucosa NECK: Supple, no JVD, trachea midline LUNGS: Clear breath sounds bilaterally. No wheezes HEART: Regular rate and rhythm. Normal S1 and S2, without murmurs ABD: Abdomen soft, nontender. Bowel sounds present EXT: No clubbing cyanosis or edema NEURO: Patient is confused and unable to follow simple commands Vital Signs (last 8hr) Date Time Temp Pulse Resp B/P (MAP) Pulse Ox O2 Delivery O2 Flow Rate FiO2 12/14/24 08:00 97.3 79 18 179/95 98 Room Air 12/14/24 04:00 97.5 87 20 163/102 95 Room Air LABS: Chemistry Labs: Test 12/14/24 05:09 12/13/24 18:01 12/13/24 07:31 12/13/24 05:30 Range/Units Whole Blood Glucose 145 H 70-110 MG/DL Sodium Level 135 L 136-145 mmol/L Potassium Level 2.9 *L 3.5-5.1 mmol/L Chloride Level 100 L 101-111 mmol/L Carbon Dioxide Level 28 21-32 mmol/L Blood Urea Nitrogen 8 7-18 mg/dL Creatinine 0.4 L 0.5-1.0 mg/dL Glomerular Filtration Rate Calc 104 >90 mL/min Random Glucose 150 H 70-105 mg/dL Total Calcium 8.4 L 8.5-10.1 mg/dL Phosphorus Level 1.2 L 2.5-4.9 mg/dL Magnesium Level 1.50 L 1.80-2.40 mg/dL Total Bilirubin 0.8 0.2-1.0 mg/dL Aspartate Amino Transf (AST/SGOT) 32 10-37 U/L Alanine Aminotransferase (ALT/SGPT) 22 12-78 U/L Alkaline Phosphatase 66 50-136 U/L Ammonia 15 11-32 umol/L Total Protein 6.3 6.0-8.3 g/dL Albumin 3.4 L 3.5-5.0 g/dL B-Type Natriuretic Peptide 70 0-100 pg/mL DIAGNOSTICS / RADIOLOGY RESULTS: [ ] PLAN: Patient's family has chosen hospice comfort care Comfort care measures ordered Case management arranging placement Patient's family has chosen facility hospice rather than at home Oral care and repositioning the patient q.2 hours Case management to facilitate transferred to another facility when bed available NEURO: Minimize central acting medications as possible. Maintain fall precautions, adequate lighting during the day PULMONARY: Supplemental 02 as needed. Maintain aspiration precautions at all times CARDIOVASCULAR: Follow hemodynamics. Vital signs per facility protocol GI & NUTRITION: Continue with nutritional support. Continue stool softeners and laxatives as needed. KIDNEYS & ELECTROLYTES: Strict monitoring of intake, output and overall fluid balance. Avoid nephrotoxic medications to the extent possible. Medications to be dosed according to renal function. Monitor electrolytes and replace as needed ENDOCRINE: Maintain blood glucose between 100-180 at all times. Hypoglycemia protocol in place INFECTIOUS DISEASE: Trend temperature, WBC and procalcitonin level Follow cultures, deescalate antibiotics as soon as possible. Panculture if new onset fever ONCOLOGY/HEMATOLOGY/COAGULATION: Monitor for s/s of bleeding Monitor hemoglobin, coagulation studies as needed SKIN: Pressure ulcer prevention per facility protocol Specialty mattress ORTHO/REHAB: Continue PT/OT Prophylaxis: Continue GI and DVT prophylaxis Code Status: Full Resuscitation Disposition: TBD Patient was seen assessed in the case was discussed with my supervising physician. 45 minutes critical care time spent excluding any procedures performed, based upon patient's criteria upon presentation involving bodily systems: Patient had severe electrolyte imbalances with magnesium and phosphorus, these have a direct influenza upon the cardiovascular system. Case was discussed reviewed plan was formulated with input from supervising physician, SUNI Delgado NP Dec 14, 2024 11:19
[2024-12-14 20:11] VITALS: BP 135/73; PULSE 99; RESP 18; TEMP 97.8
[2024-12-15] VITALS: BP 144/101; PULSE 97; RESP 18; TEMP 97.5
[2024-12-15 04:00] VITALS: BP 151/97; PULSE 95; RESP 20; TEMP 98.1
[2024-12-15 07:16] VITALS: O2SAT 97
[2024-12-15 08:00] VITALS: BP 156/97; PULSE 106; RESP 17; TEMP 97.6
--- NOTE | 2024-12-15 12:16 | PN ---
[facility] PROGRESS NOTE Date Patient Seen: Dec 15, 2024 Time of Visit: 12:16 Supervising Physician: Dr Enrico Franz Primary Care Physician: Dr Vanessa Outpatient Specialists: [ ] Inpatient Consults: Hospice PROBLEM LIST: Acute toxic metabolic encephalopathy, POA Acute complicated cystitis, POA Hyponatremia, POA Electrolyte derangements syndrome: Severe Hypophosphatemia, severe Hypomagnesemia & hypocalcemia NSTEMI, initial troponin level of 95, no complaint of chest pain, and normal sinus rhythm on the monitor, POA DM type 2, with hyperglycemia, POA Failure to thrive, POA Advanced dementia Aphasic Oropharyngeal dysphagia Comatose CHRONIC PROBLEM LIST: Advancing form of dementia Diabetes mellitus type 2 Debility Adult failure to thrive PLAN: Patient's family has chosen hospice comfort care Comfort care measures ordered Measures scheduled nonnarcotic medicine, IV Tylenol atropine, scopolamine patch q.72 hours Oral care and repositioning the patient q.2 hours Case management to facilitate transferred to another facility when bed available INTERVAL HISTORY: 74-year-old female with past medical history of dementia, GERD, DM type two who presented to ED from doctor's clinic here for evaluation of progressive weight loss and possible failure to thrive. Per report patient initially was brought in by family members to PCP clinic for evaluation. Patient was found to have significant weight loss with poor appetite. Patient was then advised to come to ED for further medical evaluation. Her initial CBC showed normal WBC however there is elevated neutrophil count, there is also anemia, likely chronic. Her CMP is significant for sodium level of 132, with normal kidney function. Her initial troponin level was 95, with unremarkable EKG. However her UA showed leuko esterase. At present patient is currently hemodynamically stable, can not provide medical history, nor able to answer questions appropriately. 12/12-patient is was assessed and seen while resting in bed in a high Rodrigues's position with family members present. Patient's condition is guarded long-term prognosis is poor. Patient is aphasic, with some form of dysphagia, at [facility] facility prior to transfer [facility] patient was receiving PPN. Patient is transferred via EMS to the hospital for altered mental status, acute metabolic encephalopathy. Upon assessment patient has severe hypophosphatemia and hypomagnesemia with hypocalcemia. Addressed through electrolyte protocol. We will review when rounding early tomorrow morning diagnostic tests results with family. Patient will have MBS assess to confirm patient's condition. We will discuss open nicely with family members especially daughter or son who has medical power of family law attorney what the family's choices. After that depending on a conversation palliative care then to speak with family about patient's diagnosis prognosis enough. Family then would like to consult GI for possible G-tube placement because the patient has some form of oropharyngeal dysphagia secondary advancing dementia. 12/13-Assessed and seen the patient with family members present, patient's son and were in the room with other family members during this time. Patient is aphasic, oropharyngeal dysphagia, secondary to advancing form of dementia, patient is nonverbal time patient's prognosis is patient has has been declining gradually during this hospital admission has been more dramatic. Patient's family reports that this time was time after discussing options the family has chosen hospice with comfort care. Laboratory studies or IV antibiotics we will be treated patient will have comfort measures including scopolamine patch, scheduled for pain relief and other p.r.n. medications as needed. Hospice referral has been made, case management arranging placement. Patient's code status is changed to DNR/.DNI. 12/14-The patient assessed, seen , while resting in bed high Rodrigues's position chronically ill-appearing, cachectic, aphasic, dysphagia, and requiring assistance and care q.2 hours oral care and rotation. Patient's family has chosen hospice hospice started at the hospital case management to assist with transferring the patient to a facility when bed available. Patient is being monitored oral care, pain medicine scheduled IV Tylenol scheduled, atropine, scopolamine patch, with 4-0 care being provided scheduled and p.r.n.. Family was updated and listened. 12/15-patient is seen assess while resting in bed high Rodrigues's position patient is total care, secondary to oropharyngeal dysphagia and family choosing hospice over G-tube interventions. This was chose this was made because the family patient has advancing process symptoms associated this advancing form dementia. Patient family spent 2-1/2 months patient enjoying time in the summer no situation would arise. Case management to assist with the hospice company that was elected for when a hospice bed is available we will be transferring the patient, the meantime patient will have hospice administered in hospital. REVIEW OF SYSTEMS: Limited due to alteration in mental status PHYSICAL EXAM: GENERAL: alert, weak, confused HEENT: EOMI, Sclera non icteric, moist mucosa NECK: Supple, no JVD, trachea midline LUNGS: Clear breath sounds bilaterally. No wheezes HEART: Regular rate and rhythm. Normal S1 and S2, without murmurs ABD: Abdomen soft, nontender. Bowel sounds present EXT: No clubbing cyanosis or edema NEURO: Patient is confused and unable to follow simple commands Vital Signs (last 8hr) Date Time Temp Pulse Resp B/P (MAP) Pulse Ox O2 Delivery O2 Flow Rate FiO2 12/15/24 08:00 97.5 106 17 156/97 97 Room Air 12/15/24 07:16 97 Room Air* 0 21 LABS: Chemistry Labs: Test 12/14/24 05:09 12/13/24 18:01 Range/Units Whole Blood Glucose 145 H 70-110 MG/DL Sodium Level 135 L 136-145 mmol/L Potassium Level 2.9 *L 3.5-5.1 mmol/L Chloride Level 100 L 101-111 mmol/L Carbon Dioxide Level 28 21-32 mmol/L Blood Urea Nitrogen 8 7-18 mg/dL Creatinine 0.4 L 0.5-1.0 mg/dL Glomerular Filtration Rate Calc 104 >90 mL/min Random Glucose 150 H 70-105 mg/dL Total Calcium 8.4 L 8.5-10.1 mg/dL Phosphorus Level 1.2 L 2.5-4.9 mg/dL Magnesium Level 1.50 L 1.80-2.40 mg/dL DIAGNOSTICS / RADIOLOGY RESULTS: [ ] PLAN: Patient's family has chosen hospice comfort care Comfort care measures ordered Case management arranging placement Patient's family has chosen facility hospice rather than at home Oral care and repositioning the patient q.2 hours Case management to facilitate transferred to another facility when bed available NEURO: Minimize central acting medications as possible. Maintain fall precautions, adequate lighting during the day PULMONARY: Supplemental 02 as needed. Maintain aspiration precautions at all times CARDIOVASCULAR: Follow hemodynamics. Vital signs per facility protocol GI & NUTRITION: Continue with nutritional support. Continue stool softeners and laxatives as needed. KIDNEYS & ELECTROLYTES: Strict monitoring of intake, output and overall fluid balance. Avoid nephrotoxic medications to the extent possible. Medications to be dosed according to renal function. Monitor electrolytes and replace as needed ENDOCRINE: Maintain blood glucose between 100-180 at all times. Hypoglycemia protocol in place INFECTIOUS DISEASE: Trend temperature, WBC and procalcitonin level Follow cultures, deescalate antibiotics as soon as possible. Panculture if new onset fever ONCOLOGY/HEMATOLOGY/COAGULATION: Monitor for s/s of bleeding Monitor hemoglobin, coagulation studies as needed SKIN: Pressure ulcer prevention per facility protocol Specialty mattress ORTHO/REHAB: Continue PT/OT Prophylaxis: Continue GI and DVT prophylaxis Code Status: Full Resuscitation Disposition: TBD Patient was seen assessed in the case was discussed with my supervising physician. 45 minutes critical care time spent excluding any procedures performed, based upon patient's criteria upon presentation involving bodily systems: Patient had severe electrolyte imbalances with magnesium and phosphorus, these have a direct influenza upon the cardiovascular system. Case was discussed reviewed plan was formulated with input from supervising physician, SUNI Delgado NP Dec 15, 2024 12:16
[2024-12-15 20:00] VITALS: BP 141/64; PULSE 62; RESP 20; TEMP 98.3; O2SAT 98
[2024-12-16] VITALS: BP 136/89; PULSE 107; RESP 20; TEMP 98.1
[2024-12-16 04:00] VITALS: BP 147/98; PULSE 112; RESP 20; TEMP 98.2
[2024-12-16 08:00] VITALS: BP 163/79; PULSE 107; RESP 20; TEMP 98
[2024-12-16 09:20] VITALS: O2SAT 91
--- NOTE | 2024-12-16 11:43 | NUR ---
SW spoke to Carlota from [facility] and pt is still waiting on a placement. Pt is currently #2 on waitlist for [facility] and they have begun the application for [facility].
--- NOTE | 2024-12-16 19:01 | PN ---
[facility] PROGRESS NOTE Date Patient Seen: Dec 16, 2024 Time of Visit: 19:01 Supervising Physician: [ ] Primary Care Physician: Dr Vanessa Outpatient Specialists: [ ] Inpatient Consults: Hospice PROBLEM LIST: Acute toxic metabolic encephalopathy, POA Acute complicated cystitis, POA Hyponatremia, POA Electrolyte derangements syndrome: Severe Hypophosphatemia, severe Hypomagnesemia & hypocalcemia NSTEMI, initial troponin level of 95, no complaint of chest pain, and normal sinus rhythm on the monitor, POA DM type 2, with hyperglycemia, POA Failure to thrive, POA Advanced dementia Aphasic Oropharyngeal dysphagia Comatose CHRONIC PROBLEM LIST: Advancing form of dementia Diabetes mellitus type 2 Debility Adult failure to thrive PLAN: Patient's family has chosen hospice comfort care Comfort care measures ordered Measures scheduled nonnarcotic medicine, IV Tylenol atropine, scopolamine patch q.72 hours Oral care and repositioning the patient q.2 hours Case management to facilitate transferred to another facility when bed available INTERVAL HISTORY: 74-year-old female with past medical history of dementia, GERD, DM type two who presented to ED from doctor's clinic here for evaluation of progressive weight loss and possible failure to thrive. Per report patient initially was brought in by family members to PCP clinic for evaluation. Patient was found to have significant weight loss with poor appetite. Patient was then advised to come to ED for further medical evaluation. Her initial CBC showed normal WBC however there is elevated neutrophil count, there is also anemia, likely chronic. Her CMP is significant for sodium level of 132, with normal kidney function. Her initial troponin level was 95, with unremarkable EKG. However her UA showed leuko esterase. At present patient is currently hemodynamically stable, can not provide medical history, nor able to answer questions appropriately. 12/12-patient is was assessed and seen while resting in bed in a high Rodrigues's position with family members present. Patient's condition is guarded long-term prognosis is poor. Patient is aphasic, with some form of dysphagia, at [facility] facility prior to [facility] patient was receiving PPN. Patient is transferred via EMS to the hospital for altered mental status, acute metabolic encephalopathy. Upon assessment patient has severe hypophosphatemia and hypomagnesemia with hypocalcemia. Addressed through electrolyte protocol. We will review when rounding early tomorrow morning diagnostic tests results with family. Patient will have MBS assess to confirm patient's condition. We will discuss open nicely with family members especially daughter or son who has medical power of transactional attorney what the family's choices. After that depending on a conversation palliative care then to speak with family about patient's diagnosis prognosis enough. Family then would like to consult GI for possible G-tube placement because the patient has some form of oropharyngeal dysphagia secondary advancing dementia. 12/13-Assessed and seen the patient with family members present, patient's son and were in the room with other family members during this time. Patient is aphasic, oropharyngeal dysphagia, secondary to advancing form of dementia, patient is nonverbal time patient's prognosis is patient has has been declining gradually during this hospital admission has been more dramatic. Patient's family reports that this time was time after discussing options the family has chosen hospice with comfort care. Laboratory studies or IV antibiotics we will be treated patient will have comfort measures including scopolamine patch, scheduled for pain relief and other p.r.n. medications as needed. Hospice referral has been made, case management arranging placement. Patient's code status is changed to DNR/.DNI. 12/14-The patient assessed, seen , while resting in bed high Rodrigues's position chronically ill-appearing, cachectic, aphasic, dysphagia, and requiring assistance and care q.2 hours oral care and rotation. Patient's family has chosen hospice hospice started at the hospital case management to assist with transferring the patient to a facility when bed available. Patient is being monitored oral care, pain medicine scheduled IV Tylenol scheduled, atropine, scopolamine patch, with 4-0 care being provided scheduled and p.r.n.. Family was updated and listened. 12/15-patient is seen assess while resting in bed high Rodrigues's position patient is total care, secondary to oropharyngeal dysphagia and family choosing hospice over G-tube interventions. This was chose this was made because the family patient has advancing process symptoms associated this advancing form dementia. Patient family spent 2-1/2 months patient enjoying time in the summer no situation would arise. Case management to assist with the hospice company that was elected for when a hospice bed is available we will be transferring the patient, the meantime patient will have hospice administered in hospital. REVIEW OF SYSTEMS: Limited due to alteration in mental status PHYSICAL EXAM: GENERAL: alert, weak, confused HEENT: EOMI, Sclera non icteric, moist mucosa NECK: Supple, no JVD, trachea midline LUNGS: Clear breath sounds bilaterally. No wheezes HEART: Regular rate and rhythm. Normal S1 and S2, without murmurs ABD: Abdomen soft, nontender. Bowel sounds present EXT: No clubbing cyanosis or edema NEURO: Patient is confused and unable to follow simple commands LABS: DIAGNOSTICS / RADIOLOGY RESULTS: [ ] PLAN: Patient's family has chosen hospice comfort care Comfort care measures ordered Case management arranging placement Patient's family has chosen facility hospice rather than at home Oral care and repositioning the patient q.2 hours Case management to facilitate transferred to another facility when bed available NEURO: Minimize central acting medications as possible. Maintain fall precautions, adequate lighting during the day PULMONARY: Supplemental 02 as needed. Maintain aspiration precautions at all times CARDIOVASCULAR: Follow hemodynamics. Vital signs per facility protocol GI & NUTRITION: Continue with nutritional support. Continue stool softeners and laxatives as needed. KIDNEYS & ELECTROLYTES: Strict monitoring of intake, output and overall fluid balance. Avoid nephrotoxic medications to the extent possible. Medications to be dosed according to renal function. Monitor electrolytes and replace as needed ENDOCRINE: Maintain blood glucose between 100-180 at all times. Hypoglycemia protocol in place INFECTIOUS DISEASE: Trend temperature, WBC and procalcitonin level Follow cultures, deescalate antibiotics as soon as possible. Panculture if new onset fever ONCOLOGY/HEMATOLOGY/COAGULATION: Monitor for s/s of bleeding Monitor hemoglobin, coagulation studies as needed SKIN: Pressure ulcer prevention per facility protocol Specialty mattress ORTHO/REHAB: Continue PT/OT Prophylaxis: Continue GI and DVT prophylaxis Code Status: Full Resuscitation Disposition: TBD Patient was seen assessed in the case was discussed with my supervising physician. 45 minutes critical care time spent excluding any procedures performed, based upon patient's criteria upon presentation involving bodily systems: Patient had severe electrolyte imbalances with magnesium and phosphorus, these have a direct influenza upon the cardiovascular system. Case was discussed reviewed plan was formulated with input from supervising physician, SUNI Delgado NP Dec 16, 2024 19:01
[2024-12-16 19:10] VITALS: O2SAT 98
--- NOTE | 2024-12-16 19:51 | PN ---
[facility] PROGRESS NOTE Date Patient Seen: Dec 16, 2024 Time of Visit: 19:49 Supervising Physician: APRIL PARRA MD Primary Care Physician: Dr Vanessa Outpatient Specialists: [ ] Inpatient Consults: Hospice PROBLEM LIST: Acute toxic metabolic encephalopathy, POA Acute complicated cystitis, POA Hyponatremia, POA Electrolyte derangements syndrome: Severe Hypophosphatemia, severe Hypomagnesemia & hypocalcemia NSTEMI, initial troponin level of 95, no complaint of chest pain, and normal sinus rhythm on the monitor, POA DM type 2, with hyperglycemia, POA Failure to thrive, POA Advanced dementia Aphasic Oropharyngeal dysphagia Comatose CHRONIC PROBLEM LIST: Advancing form of dementia Diabetes mellitus type 2 Debility Adult failure to thrive INTERVAL HISTORY: Patient's family at bedside She is on room air no acute distress unable to sleep overnight as per family, patient very anxious and confused no fevers no nausea no vomiting no seizures patient is agitated, poor appetite. REVIEW OF SYSTEMS: Limited due to alteration in mental status PHYSICAL EXAM: GENERAL: alert, weak, confused HEENT: EOMI, Sclera non icteric, moist mucosa NECK: Supple, no JVD, trachea midline LUNGS: Clear breath sounds bilaterally. No wheezes HEART: Regular rate and rhythm. Normal S1 and S2, without murmurs ABD: Abdomen soft, nontender. Bowel sounds present EXT: No clubbing cyanosis or edema NEURO: Patient is confused and unable to follow simple commands LABS: DIAGNOSTICS / RADIOLOGY RESULTS: [ ] PLAN: Continue comfort measures Patient with anti anxiety medications Keep comfortable aspiration precautions fall precautions Family updated, prognosis poor. DNR I personally scribed for APRIL SALMON MD ([email or web address]) on 12/16/24 at 19:51. Electronically submitted by Ned Drummond ([email or web address]). APRIL SALMON MD Dec 16, 2024 19:51
[2024-12-16 20:00] VITALS: BP 129/67; PULSE 122; RESP 20; TEMP 98.1
[2024-12-17 08:00] VITALS: BP 150/79; PULSE 99; RESP 18; TEMP 96.9
[2024-12-17 08:01] VITALS: O2SAT 97
--- NOTE | 2024-12-17 08:32 | NUR ---
TOBI spoke with Carlota [phone] from [facility]. As per Carlota she was pending COVID results to complete the application for [facility] for hospice placement. TOIB faxed copy of results to [phone]. As per Carlota she will be submitting application for [facility] and pt continues to be #2 on the waitlist at [facility].
--- NOTE | 2024-12-17 11:20 | NUR ---
DCP HOS[facility] AT [facility] received call from Carlota [phone] that pt has been accepted for placement by [facility]. [facility] has a cut off to accept pts at 12pm. DME will be delivered today and pt will be ready to transition to [facility] in the am of 12/18. Call report to [facility] [phone] and [phone] for hospice.
--- NOTE | 2024-12-17 14:56 | PN ---
[facility] PROGRESS NOTE Date Patient Seen: Dec 17, 2024 Time of Visit: 14:56 Supervising Physician: Dr. Ness Primary Care Physician: Dr Vanessa Outpatient Specialists: [ ] Inpatient Consults: Hospice PROBLEM LIST: Acute toxic metabolic encephalopathy, POA Acute complicated cystitis, POA Hyponatremia, POA Electrolyte derangements syndrome: Severe Hypophosphatemia, severe Hypomagnesemia & hypocalcemia NSTEMI, initial troponin level of 95, no complaint of chest pain, and normal sinus rhythm on the monitor, POA DM type 2, with hyperglycemia, POA Failure to thrive, POA Advanced dementia Aphasic Oropharyngeal dysphagia Comatose CHRONIC PROBLEM LIST: Advancing form of dementia Diabetes mellitus type 2 Debility Adult failure to thrive INTERVAL HISTORY: Patient is seen bedside with family members present. Patient appears comfortable, no complaints or overnight events reported by family. She remains on comfort measures, DNR code status. Patient has pending a visit from hospice services to evaluate for outpatient hospice. REVIEW OF SYSTEMS: Limited due to alteration in mental status PHYSICAL EXAM: GENERAL: alert, weak, confused HEENT: EOMI, Sclera non icteric, moist mucosa NECK: Supple, no JVD, trachea midline LUNGS: Clear breath sounds bilaterally. No wheezes HEART: Regular rate and rhythm. Normal S1 and S2, without murmurs ABD: Abdomen soft, nontender. Bowel sounds present EXT: No clubbing cyanosis or edema NEURO: Patient is confused and unable to follow simple commands Vital Signs (last 8hr) Date Time Temp Pulse Resp B/P (MAP) Pulse Ox O2 Delivery O2 Flow Rate FiO2 12/17/24 08:00 97.0 99 18 150/79 97 Room Air LABS: DIAGNOSTICS / RADIOLOGY RESULTS: [ ] PLAN: Continue comfort measures Patient with anti anxiety medications Keep comfortable aspiration precautions fall precautions Family updated, prognosis poor. DNR ENID MONDRAGON Dec 17, 2024 14:56
[2024-12-17 19:40] VITALS: O2SAT 96
[2024-12-17 20:00] VITALS: BP 143/87; PULSE 112; RESP 20; TEMP 97.4
[2024-12-18 08:00] VITALS: BP 131/79; PULSE 76; RESP 13; TEMP 96.6; O2SAT 99
--- NOTE | 2024-12-18 08:19 | NUR ---
RON NOBLEING TOBI received a call first thing in the morning from Anita at [facility], she informed me that family had contacted her yesterday evening saying that they were unsure about the decision to go to the [facility] and decided not to move forth. It was explained to him that if he decided to not go through with it last night he would surrender his spot and he stated he understood. Stated that he wanted to look into a private home but could not identify which one. TOBI will be also following up with family.
--- NOTE | 2024-12-18 08:50 | NUR ---
DC PLAN RECEIVED MESSAGE FROM MODELING INSTRUCTOR FARSHAD SAID THAT SON YESTERDAY AT 645PM TOLD NATALIE JEFF THAT THEY DID NOT QUITE LIKE THE PLACE AND DID NOT WANT BED. HE ALSO LOST BED AT [facility]. THEY SAID THEY THINK THEY WILL GO WITH [facility]IVATE [facility] HOME. THEY WERE NOT SURE WOULD HAVE TO LOOK AROUND. CM LET PRIMARY KNOW OF SITUATION. ASKED FOR DC ORDER FOR FINANCIAL DEPARTMENT TO VISIT SO THAT THEY COULD GET A HOSPITAL RATE FOR STAYING IN HOSPITAL. ORDER PLACED CM SENT MESSAGE TO FINANCIAL DEPARTMENT. Addendum: 12/18/24 at 0855 by LESLEY TRUJILLO RN CM Amended: Links added.
--- NOTE | 2024-12-18 08:50 | NUR ---
TOBI met with sps and son (via phone) to discuss DC plan. As per sps he was unaware that the [facility] placement was let go. Son stated that they had previously had a conversation about it and perhaps the father does not remember. TOBI asked what new plan is and educated family about the dc orders already being placed. As per son they are looking into private homes in the [facility] and will be contacting Anita today to discuss placement. TOBI contacted Carlota to give a heads up about the conversation had with family and she stated that she will contact son KWAN.
--- NOTE | 2024-12-18 09:15 | NUR ---
DC PLAN: HOSPICE AT [facility] TOBI received a call from Anita with [facility] and she stated that she contact the family and they stated that they are looking to go with the [facility]. She states that the home fee is about $1500 a month and family states that is within their budget. Anita states that they are setting up an appointment for family to tour and do consents today and they will keep me posted once everything has been finalized and DME is delivered. TOBI will follow.
--- NOTE | 2024-12-18 11:17 | NUR ---
DC: HOSPICE AT [facility] SW received update from [facility] stating that pt's family has agreed to go to [facility] ([id number] At this time they are confirming that they have DME at the facility and will confirm once they have everything there. Nurses to call report to [facility] at [phone] and [facility] at [phone]
--- NOTE | 2024-12-18 11:57 | NUR ---
EMS form has been updated and placed in chart. SW spoke with nurse to inform of plan and numbers to call report.
--- NOTE | 2024-12-18 13:20 | NUR ---
REPORT CALLED TO [facility] Report given to staff. Room is ready.
--- NOTE | 2024-12-18 14:16 | PN ---
[facility] PROGRESS NOTE Date Patient Seen: Dec 18, 2024 Time of Visit: 14:16 Supervising Physician: Dr. Salgado Primary Care Physician: Dr Vanessa Outpatient Specialists: [ ] Inpatient Consults: Hospice PROBLEM LIST: Acute toxic metabolic encephalopathy, POA Acute complicated cystitis, POA Hyponatremia, POA Electrolyte derangements syndrome: Severe Hypophosphatemia, severe Hypomagnesemia & hypocalcemia NSTEMI, initial troponin level of 95, no complaint of chest pain, and normal sinus rhythm on the monitor, POA DM type 2, with hyperglycemia, POA Failure to thrive, POA Advanced dementia Aphasic Oropharyngeal dysphagia Comatose CHRONIC PROBLEM LIST: Advancing form of dementia Diabetes mellitus type 2 Debility Adult failure to thrive INTERVAL HISTORY: Patient is seen bedside with family members present. Patient appears comfortable, no complaints or overnight events reported by family. She remains on comfort measures, DNR code status. Patient has pending a visit from hospice services to evaluate for outpatient hospice. REVIEW OF SYSTEMS: Limited due to alteration in mental status PHYSICAL EXAM: GENERAL: alert, weak, confused HEENT: EOMI, Sclera non icteric, moist mucosa NECK: Supple, no JVD, trachea midline LUNGS: Clear breath sounds bilaterally. No wheezes HEART: Regular rate and rhythm. Normal S1 and S2, without murmurs ABD: Abdomen soft, nontender. Bowel sounds present EXT: No clubbing cyanosis or edema NEURO: Patient is confused and unable to follow simple commands Vital Signs (last 8hr) Date Time Temp Pulse Resp B/P (MAP) Pulse Ox O2 Delivery O2 Flow Rate FiO2 12/18/24 08:00 96.6 76 13 131/79 94 Room Air LABS: DIAGNOSTICS / RADIOLOGY RESULTS: [ ] PLAN: Continue comfort measures Patient with anti anxiety medications Keep comfortable aspiration precautions fall precautions Family updated, prognosis poor. DNR ENID MONDRAGON Dec 18, 2024 14:16
--- NOTE | 2024-12-18 14:42 | NUR ---
REPORT TO [facility], NURSE TRIPATHI Report called. EMS to be called once keycase assembler provides non-emergent transfer form.
--- NOTE | 2024-12-18 14:50 | NUR ---
CHIQUI PLAN FAMILY DECIDED [facility] [phone] AT [facility] [phone]. LET NURSE AND KNOW. EMS SET UP. Addendum: 12/18/24 at 1452 by LESLEY TRUJILLO RN CM Amended: Links added.
--- NOTE | 2024-12-18 14:56 | DS ---
[facility] DISCHARGE SUMMARY Date Patient Seen: Dec 18, 2024 Time of Visit: 14:56 Supervising Physician: [ ] Supervising Physician: Dr. Salgado Primary Care Physician: Dr Vanessa Outpatient Specialists: [ ] Inpatient Consults: Hospice HOSPITAL COURSE: HPI (per admitting provider) 74-year-old female with past medical history of dementia, GERD, DM type two who presented to ED from doctor's clinic here for evaluation of progressive weight loss and possible failure to thrive. Per report patient initially was brought in by family members to PCP clinic for evaluation. Patient was found to have significant weight loss with poor appetite. Patient was then advised to come to ED for further medical evaluation. Her initial CBC showed normal WBC however there is elevated neutrophil count, there is also anemia, likely chronic. Her CMP is significant for sodium level of 132, with normal kidney function. Her initial troponin level was 95, with unremarkable EKG. However her UA showed leuko esterase. At present patient is currently hemodynamically stable, can not provide medical history, nor able to answer questions appropriately. The patient was treated for the following problems: Patient was originally admitted for NSTEMI and toxic encephalopathy. Patient was noted to have worsening severe dementia. On this admission patient's family opted for comfort measures and hospice, she is being discharged into hospice house with family at bedside. ACTIVE PROBLEM LIST FOR THE HOSPITALIZATION: Acute toxic metabolic encephalopathy, POA Acute complicated cystitis, POA Hyponatremia, POA Electrolyte derangements syndrome: Severe Hypophosphatemia, severe Hypomagnesemia & hypocalcemia NSTEMI, initial troponin level of 95, no complaint of chest pain, and normal sinus rhythm on the monitor, POA DM type 2, with hyperglycemia, POA Failure to thrive, POA Advanced dementia Aphasic Oropharyngeal dysphagia Comatose CHRONIC PROBLEMS: continue previous management per PCP unless otherwise indicated Advancing form of dementia Diabetes mellitus type 2 Debility Adult failure to thrive ENVIRONMENTAL SUSTAINABILITY MANAGER FINDINGS/RECOMMENDATIONS: [ ] PROCEDURES: as mentioned above DISCHARGE MEDICATIONS: Pt hemodynamically stable and afebrile at time of discharge. PCP notified of patients admission, hospital course and discharge. PHYSICAL EXAM: GENERAL: alert, weak, confused HEENT: EOMI, Sclera non icteric, moist mucosa NECK: Supple, no JVD, trachea midline LUNGS: Clear breath sounds bilaterally. No wheezes HEART: Regular rate and rhythm. Normal S1 and S2, without murmurs ABD: Abdomen soft, nontender. Bowel sounds present EXT: No clubbing cyanosis or edema NEURO: Patient is confused and unable to follow simple commands FOLLOW-UP: Follow-up with PCP in 2-3 days RECOMMENDATIONS: See Discharge Instructions This case was seen and discussed with my supervising physician. More than 30 minutes spent on discharge process, including evaluation of the patient, discussion with nursing staff, medication reconciliation and follow-up appointments ENID MONDRAGON Dec 18, 2024 14:56
--- NOTE | 2024-12-18 15:01 | NUR ---
[employer] PROVIDED EMS TRANSFER FORM. [facility] called for non-emergent transfer to [facility]. EMS requesting address. States was not faxed to them. Will speak with nurse case manager for address and return call to [facility] with requested information. Addendum: 12/18/24 at 1510 by CLARK SOLIS RN RN Address was on original form faxed by nurse case manager. Verified and then refaxed. Phoned [facility] to provide verbal information as well.
--- NOTE | 2024-12-18 16:17 | NUR ---
DISCHARGE NOTE Discharge orders reviewed with patient family present at bedside. Patient report called to [facility] and to [facility]. IV and ID bands removed. Personal belongings packed and taken with family. Patient tranported via stretcher to EMS.
== END 2024-12-18 14:17 | disposition hospice, home (50) | DRG 91 ==
LOC: EDH 14:04 → EDHIP 15:59 → 4CH 21:02
PROVIDERS: ADMIT Internal Medicine; ATTEND Internal Medicine
DX: G92.8 Other toxic encephalopathy (principal); I21.4 Non-ST elevation (NSTEMI) myocardial infarction; N30.00 Acute cystitis without hematuria; E87.1 Hypo-osmolality and hyponatremia; Z68.1 Body mass index [BMI] 19.9 or less, adult; E11.65 Type 2 diabetes mellitus with hyperglycemia; R62.7 Adult failure to thrive; Z66 Do not resuscitate; F03.90 Unspecified dementia, unspecified severity, without behavioral disturbance, psychotic disturbance, mood disturbance, and anxiety; D64.9 Anemia, unspecified; E83.51 Hypocalcemia; E83.42 Hypomagnesemia; E83.39 Other disorders of phosphorus metabolism; F03.C0 Unspecified dementia, severe, without behavioral disturbance, psychotic disturbance, mood disturbance, and anxiety; K21.9 Gastro-esophageal reflux disease without esophagitis; Z51.5 Encounter for palliative care
CPT/HCPCS: 36415; 71045; 74176; 74230; 80048; 80053; 81001; 82140; 82550; 82948; 83690; 83735; 83880; 84100; 84145; 84484; 85025; 87086; 87426; 92507; 92610; 92611; 93005; 99285; G0378; J0696; J2270; J3360; J3475; J3490; J7030; J7050